=== PATIENT | female | born 1965 | race Caucasian/White ===

== ENCOUNTER 2020-10-25 15:03 | Emergency (ER) | payer OTHER ==
[~2020-10-25 15:03] MED LIST: ANORO ELLIPTA1 EACH INH; CALCIUM500 M1 PO; CATAPRES0.1 MG PO; LEVAQUIN500 MG PO; MEDROL 4MG DOSEP4 MG PO; NORCO 5-325 TA1 EACH PO; PERCOCET 5-3251 EACH PO; ROPINIROLE HCL1 MG PO; SEROQUEL 25MG T25 MG PO; TAMIFLU75 MG PO; VENTOLIN HFA IN18 GM INH; VIBRAMYCIN100 MG PO; ZOLOFT100 MG PO
[2020-10-25] MEDS ORDERED: CEPHALEXIN500 MG PO (17:30)
[2020-10-25] MEDS ORDERED: NORCO 5-325 TA1 EACH PO ×2 (17:42→17:44)
== END 2020-10-25 17:55 | disposition home or self-care (01) ==
LOC: FER 15:03
DX: S93.411A Sprain of calcaneofibular ligament of right ankle, initial encounter (principal); L03.115 Cellulitis of right lower limb; X50.1XXA Overexertion from prolonged static or awkward postures, initial encounter; Y92.009 Unspecified place in unspecified non-institutional (private) residence as the place of occurrence of the external cause
CPT/HCPCS: 73590; 73630

== ENCOUNTER 2021-07-09 02:08 | Emergency (ER) | payer OTHER ==
[~2021-07-09 02:08] MED LIST changes: +CEPHALEXIN500 MG PO
[2021-07-09] MEDS ORDERED: ATARAX25 MG PO (03:10)
[2021-07-09] MEDS ORDERED: MEDROL 4MG DOSEP4 MG PO (03:10)
[2021-07-09] MEDS ORDERED: PEPCID AC20 MG PO (03:10)
[2021-07-09] MEDS ORDERED: 24HR ALLERGY REL5 MG PO (03:10)
[2021-07-09] MEDS ORDERED: TRIAMCINOLONE 080 GM TOP (03:10)
== END 2021-07-09 03:37 | disposition home or self-care (01) ==
LOC: FER 02:08
DX: L29.9 Pruritus, unspecified (principal); T36.3X5A Adverse effect of macrolides, initial encounter; F17.200 Nicotine dependence, unspecified, uncomplicated; J44.9 Chronic obstructive pulmonary disease, unspecified; Z88.2 Allergy status to sulfonamides
CPT/HCPCS: 99282; J1100